=== PATIENT | female | born 1975 | race Caucasian/White ===

== ENCOUNTER 2023-05-14 04:36 | Observation (INO) | payer OTHER ==
--- NOTE | 2023-05-14 04:46 | ED ---
Overdose HPI - General Stated Complaint: Overdose, AMS Time Seen by Provider: 05/14/23 04:46 - History of Present Illness Initial Comments: Patient is a 47-year-old female came to our emergency department as a transfer from outside hospital. Apparently the patient was taken there due to altered mental status after a possibly intentional overdose. Uncertain what the patient may have taken friends provided different pill bottles which include the patrol, Xanax, Librium, Prozac and they were also told she may have taken a sleeping pill. Patient was noted to be agitated and noncooperative. Patient had blood work at outside hospital that revealed lactic acidosis, minimal transaminitis. Because patient removed her IV multiple times she did not receive any fluids she was agitated was observed for a few hours repeat labs revealed a worsening lacti c acidosis and decision was made to give her Haldol to facilitate treatment and transfer here for further evaluation of altered mental status and need for mental health evaluation. A computed tomography scan at the outside hospital that was unremarkable. - Related Data Home Medications Medication Instructions Recorded Confirmed ALPRAZolam [Xanax] 1 mg PO TID 05/14/23 05/14/23 Atorvastatin [Lipitor] 10 mg PO DAILY 05/14/23 05/14/23 Cyclobenzaprine [Flexeril] 10 mg PO TID PRN 05/14/23 05/14/23 Doxepin HCl [SINEquan] 150 mg PO HS 05/14/23 05/14/23 Insulin Glargine,Hum.rec.anlog 16 units SQ DIRECTED 05/14/23 05/14/23 [Lantus Solostar Pen] Insulin Lispro [humaLOG Kwikpen] See Protocol SQ ACHS 05/14/23 05/14/23 Levothyroxine Sodium [Synthroid] 50 mcg PO DAILY 05/14/23 05/14/23 [place] [facility] [Lithobid] 450 mg PO DAILY 05/14/23 05/14/23 Meloxicam [Mobic] 15 mg PO DAILY 05/14/23 05/14/23 hydroCHLOROthiazide [Hydrodiuril] 25 mg PO DAILY 05/14/23 05/14/23 Allergies Allergy/AdvReac Type Severity Reaction Status Date / Time No Known Allergies Allergy Verified 05/15/23 01:32 Review of Systems ROS Statement: Those systems with pertinent positive or pertinent negative responses have been documented in the HPI. ROS Other: All systems not noted in ROS Statement are negative. Past Medical History - Past Family History Father Family Medical History: Dementia, Renal Disease Additional Family Medical History / Comment(s): drug addict Mother Family Medical History: Dementia General Exam - General Exam Comments Initial Comments: Physical Exam GENERAL: Patient is somewhat obtunded, open-mouth breathing, dry mucous membranes. She does wake to loud verbal stimuli or shaking HENT: Normocephalic, Atraumatic. If his membranes dry EYES: PERRL, EOMI PULMONARY: Unlabored respirations CARDIOVASCULAR: Tachycardic, regular ABDOMEN: Non-distended SKIN: No rashes or bruising : Deferred NEUROLOGIC: Obtunded but moving extremities and fighting examination MUSCULOSKELETAL: Moving all extremities with no apparent injury PSYCHIATRIC: Unable to assess Course Vital Signs 05/14/23 05/14/23 05/14/23 04:46 05:27 09:30 Temperature 98.2 F Pulse Rate 114 H 110 H 96 Respiratory 20 22 18 Rate Blood Pressure 136/97 146/93 138/91 O2 Sat by Pulse 98 96 96 Oximetry 05/14/23 05/14/23 05/14/23 11:00 12:00 17:15 Temperature Pulse Rate 96 95 86 Respiratory 18 18 18 Rate Blood Pressure 161/97 131/84 144/96 O2 Sat by Pulse 96 96 100 Oximetry Medical Decision Making - Medical Decision Making Was pt. sent in by a medical professional or institution ([facility], ASSISTANT GOLF COACH, urgent care, hospital, or long-term...) When possible be specific @ -Yes, transfer from outside facility Did you speak to anyone other than the patient for history (EMS, parent, family, police, friend...)? What history was obtained from this source @ -EMS Did you review nursing and triage notes (agree or disagree)? Why? @ -I reviewed and agree with nursing and triage notes Were old charts reviewed (outside hosp., previous admission, EMS record, old EKG, old radiological studies, urgent care reports/EKG's, long-term records)? Report findings @ -Transfer packet reviewed Differential Diagnosis (chest pain, altered mental status, abdominal pain women, abdominal pain men, vaginal bleeding, weakness, fever, dyspnea, syncope, heada ozzy, dizziness, GI bleed, back pain, seizure, CVA, palpatations, mental health, musculoskeletal)? @ -Differential Altered Mental Status: Hypoglycemia, DKA, hypercapnia, ETOH, overdose, CO poisoning, trauma, myxedema coma, HTN encephalopathy, infection, encephalitis, psychosis, intercranial hemorrhage, hepatic encephalopathy, meningitis, CVA, this is not meant to be an all-inclusive list EKG interpreted by me (3pts min.). @ -As above X-rays interpreted by me (1pt min.). @ -None done CT interpreted by me (1pt min.). @ -None done U/S interpreted by me (1pt. min.). @ -None done What testing was considered but not performed or refused? (CT, X-rays, U/S, labs)? Why? @ -None What meds were considered but not given or refused? Why? @ -Narcan, was given an outside facility without change in condition Did you discuss the management of the patient with other professionals (professionals i.e. , PA, ASSISTANT GOLF COACH, lab, RT, psych nurse, social worker delinquency prevention, modeling instructor, teacher, division officer weapons department, family independence case manager)? Give summary @ -No Was smoking cessation discussed for >3mins.? @ -No Was critical care preformed (if so, how long)? @ -No Were there social determinants of health that impacted care today? How? (Homelessness, low income, unemployed, alcoholism, drug addiction, transportation, low edu. Level, literacy, decrease access to med. care, group home, rehab)? @ -No Was there de-escalation of care discussed even if they declined (Discuss DNR or withdrawal of care, Hospice)? DNR status @ -No What co-morbidities impacted this encounter? (DM, HTN, Smoking, COPD, CAD, Cancer, CVA, ARF, Chemo, Hep., AIDS, mental health diagnosis, sleep apnea, morbid obesity)? @ -None Was patient admitted / discharged? Hospital course, mention meds given and route, prescriptions, significant lab abnormalities, going to OR and other pertinent info. @ -Admit Undiagnosed new problem with uncertain prognosis? @ -No Drug Therapy requiring intensive monitoring for toxicity (Heparin, Nitro, Insulin, Cardizem)? @ -No Were any procedures done? @ -No Diagnosis/symptom? @ -Altered mental status, polysubstance ingestion Acute, or Chronic, or Acute on Chronic? @ -Acute Uncomplicated (without systemic symptoms) or Complicated (systemic symptoms)? @ -default Side effects of treatment? @ -No Exacerbation, Progression, or Severe Exacerbation? @ -No Poses a threat to life or bodily function? How? (Chest pain, [place], [place], pneumonia, PE, COPD, DKA, ARF, appy, cholecystitis, CVA, Diverticulitis, Homicidal, S uicidal, threat to staff... and all critical care pts) @ -No - Lab Data Result diagrams: 05/14/23 04:49 05/14/23 15:20 Lab Results 05/14/23 05/14/23 05/14/23 Range/Units 04:46 04:48 04:49 WBC 10.1 (3.8-10.6) k/uL RBC 4.05 (3.80-5.40) m/uL Hgb 12.4 (11.4-16.0) gm/dL Hct 38.2 (34.0-46.0) % MCV 94.2 (80.0-100.0) fL MCH 30.7 (25.0-35.0) pg MCHC 32.6 (31.0-37.0) g/dL RDW 13.1 (11.5-15.5) % Plt Count 265 (150-450) k/uL MPV 7.2 Neutrophils % 81 % Lymphocytes % 14 % Monocytes % 4 % Eosinophils % 0 % Basophils % 0 % Neutrophils # 8.1 H (1.3-7.7) k/uL Lymphocytes # 1.4 (1.0-4.8) k/uL Monocytes # 0.4 (0-1.0) k/uL Eosinophils # 0.0 (0-0.7) k/uL Basophils # 0.0 (0-0.2) k/uL PT (9.0-12.0) sec INR (<1.2) APTT (22.0-30.0) sec VBG pH 7.36 (7.31-7.41) VBG pCO2 35 L (37-51) mmHg VBG HCO3 20 L (24-28) mmol/L Sodium (137-145) mmol/L Potassium (3.5-5.1) mmol/L Chloride (98-107) mmol/L Carbon Dioxide (22-30) mmol/L Anion Gap mmol/L BUN (7-17) mg/dL Creatinine (0.52-1.04) mg/dL Est GFR (CKD-EPI)AfAm (>60 ml/min/1.73 sqM) Est GFR (CKD-EPI)NonAf (>60 ml/min/1.73 sqM) Glucose (74-99) mg/dL POC Glucose (mg/dL) 194 H (70-110) mg/dL POC Glu Insurance Account Specialist ID Lisandro David Lactic Ac Sepsis Rflx Plasma Lactic Acid Paco (0.7-2.0) mmol/L Calcium (8.4-10.2) mg/dL Total Bilirubin (0.2-1.3) mg/dL AST (14-36) U/L ALT (4-34) U/L Alkaline Phosphatase (38-126) U/L Creatine Kinase (30-135) U/L Total Protein (6.3-8.2) g/dL Albumin (3.5-5.0) g/dL Amylase (30-110) U/L Lipase (23-300) U/L Urine HCG, Qual (Not Detectd) Salicylates mg/dL Urine Opiates Screen (NotDetected) Ur Oxycodone Screen (NotDetected) Urine Methadone Screen (NotDetected) Ur Propoxyphene Screen (NotDetected) Acetaminophen ug/mL Ur Barbiturates Screen (NotDetected) U Tricyclic Antidepress (NotDetected) Ur Phencyclidine Scrn (NotDetected) Ur Amphetamines Screen (NotDetected) U Methamphetamines Scrn (NotDetected) U Benzodiazepines Scrn (NotDetected) Urine Cocaine Screen (NotDetected) U Marijuana (THC) Screen (NotDetected) Serum Alcohol mg/dL 05/14/23 05/14/23 05/14/23 Range/Units 04:49 04:49 04:49 WBC (3.8-10.6) k/uL RBC (3.80-5.40) m/uL Hgb (11.4-16.0) gm/dL Hct (34.0-46.0) % MCV (80.0-100.0) fL MCH (25.0-35.0) pg MCHC (31.0-37.0) g/dL RDW (11.5-15.5) % Plt Count (150-450) k/uL MPV Neutrophils % % Lymphocytes % % Monocytes % % Eosinophils % % Basophils % % Neutrophils # (1.3-7.7) k/uL Lymphocytes # (1.0-4.8) k/uL Monocytes # (0-1.0) k/uL Eosinophils # (0-0.7) k/uL Basophils # (0-0.2) k/uL PT 9.8 (9.0-12.0) sec INR 0.9 (<1.2) APTT 22.5 (22.0-30.0) sec VBG pH (7.31-7.41) VBG pCO2 (37-51) mmHg VBG HCO3 (24-28) mmol/L Sodium (137-145) mmol/L Potassium (3.5-5.1) mmol/L Chloride (98-107) mmol/L Carbon Dioxide (22-30) mmol/L Anion Gap mmol/L BUN (7-17) mg/dL Creatinine (0.52-1.04) mg/dL Est GFR (CKD-EPI)AfAm (>60 ml/min/1.73 sqM) Est GFR (CKD-EPI)NonAf (>60 ml/min/1.73 sqM) Glucose (74-99) mg/dL POC Glucose (mg/dL) (70-110) mg/dL POC Glu Insurance Account Specialist ID Lactic Ac Sepsis Rflx Plasma Lactic Acid Paco (0.7-2.0) mmol/L Calcium (8.4-10.2) mg/dL Total Bilirubin (0.2-1.3) mg/dL AST (14-36) U/L ALT (4-34) U/L Alkaline Phosphatase (38-126) U/L Creatine Kinase (30-135) U/L Total Protein (6.3-8.2) g/dL Albumin (3.5-5.0) g/dL Amylase (30-110) U/L Lipase (23-300) U/L Urine HCG, Qual Not Detected (Not Detectd) Salicylates mg/dL Urine Opiates Screen Not Detected (NotDetected) Ur Oxycodone Screen Not Detected (NotDetected) Urine Methadone Screen Not Detected (NotDetected) Ur Propoxyphene Screen Not Detected (NotDetected) Acetaminophen ug/mL Ur Barbiturates Screen Not Detected (NotDetected) U Tricyclic Antidepress Detected H (NotDetected) Ur Phencyclidine Scrn Not Detected (NotDetected) Ur Amphetamines Screen Not Detected (NotDetected) U Methamphetamines Scrn Not Detected (NotDetected) U Benzodiazepines Scrn Detected H (NotDetected) Urine Cocaine Screen Not Detected (NotDetected) U Marijuana (THC) Screen Detected H (NotDetected) Serum Alcohol mg/dL 05/14/23 05/14/23 05/14/23 Range/Units 04:49 04:49 04:49 WBC (3.8-10.6) k/uL RBC (3.80-5.40) m/uL Hgb (11.4-16.0) gm/dL Hct (34.0-46.0) % MCV (80.0-100.0) fL MCH (25.0-35.0) pg MCHC (31.0-37.0) g/dL RDW (11.5-15.5) % Plt Count (150-450) k/uL MPV Neutrophils % % Lymphocytes % % Monocytes % % Eosinophils % % Basophils % % Neutrophils # (1.3-7.7) k/uL Lymphocytes # (1.0-4.8) k/uL Monocytes # (0-1.0) k/uL Eosinophils # (0-0.7) k/uL Basophils # (0-0.2) k/uL PT (9.0-12.0) sec INR (<1.2) APTT (22.0-30.0) sec VBG pH (7.31-7.41) VBG pCO2 (37-51) mmHg VBG HCO3 (24-28) mmol/L Sodium 140 (137-145) mmol/L Potassium 4.2 (3.5-5.1) mmol/L Chloride 110 H (98-107) mmol/L Carbon Dioxide 16 L (22-30) mmol/L Anion Gap 14 mmol/L BUN 13 (7-17) mg/dL Creatinine 0.62 (0.52-1.04) mg/dL Est GFR (CKD-EPI)AfAm >90 (>60 ml/min/1.73 sqM) Est GFR (CKD-EPI)NonAf >90 (>60 ml/min/1.73 sqM) Glucose 194 H (74-99) mg/dL POC Glucose (mg/dL) (70-110) mg/dL POC Glu Insurance Account Specialist ID Lactic Ac Sepsis Rflx Plasma Lactic Acid Paco 4.5 H* (0.7-2.0) mmol/L Calcium 8.8 (8.4-10.2) mg/dL Total Bilirubin 0.4 (0.2-1.3) mg/dL AST 137 H (14-36) U/L ALT 169 H (4-34) U/L Alkaline Phosphatase 127 H (38-126) U/L Creatine Kinase 1075 H* (30-135) U/L Total Protein 6.8 (6.3-8.2) g/dL Albumin 3.9 (3.5-5.0) g/dL Amylase 32 (30-110) U/L Lipase 27 (23-300) U/L Urine HCG, Qual (Not Detectd) Salicylates <1.0 mg/dL Urine Opiates Screen (NotDetected) Ur Oxycodone Screen (NotDetected) Urine Methadone Screen (NotDetected) Ur Propoxyphene Screen (NotDetected) Acetaminophen <10.0 ug/mL Ur Barbiturates Screen (NotDetected) U Tricyclic Antidepress (NotDetected) Ur Phencyclidine Scrn (NotDetected) Ur Amphetamines Screen (NotDetected) U Methamphetamines Scrn (NotDetected) U Benzodiazepines Scrn (NotDetected) Urine Cocaine Screen (NotDetected) U Marijuana (THC) Screen (NotDetected) Serum Alcohol <10 mg/dL 05/14/23 Range/Units 05:36 WBC (3.8-10.6) k/uL RBC (3.80-5.40) m/uL Hgb (11.4-16.0) gm/dL Hct (34.0-46.0) % MCV (80.0-100.0) fL MCH (25.0-35.0) pg MCHC (31.0-37.0) g/dL RDW (11.5-15.5) % Plt Count (150-450) k/uL MPV Neutrophils % % Lymphocytes % % Monocytes % % Eosinophils % % Basophils % % Neutrophils # (1.3-7.7) k/uL Lymphocytes # (1.0-4.8) k/uL Monocytes # (0-1.0) k/uL Eosinophils # (0-0.7) k/uL Basophils # (0-0.2) k/uL PT (9.0-12.0) sec INR (<1.2) APTT (22.0-30.0) sec VBG pH (7.31-7.41) VBG pCO2 (37-51) mmHg VBG HCO3 (24-28) mmol/L Sodium (137-145) mmol/L Potassium (3.5-5.1) mmol/L Chloride (98-107) mmol/L Carbon Dioxide (22-30) mmol/L Anion Gap mmol/L BUN (7-17) mg/dL Creatinine (0.52-1.04) mg/dL Est GFR (CKD-EPI)AfAm (>60 ml/min/1.73 sqM) Est GFR (CKD-EPI)NonAf (>60 ml/min/1.73 sqM) Glucose (74-99) mg/dL POC Glucose (mg/dL) (70-110) mg/dL POC Glu Insurance Account Specialist ID Lactic Ac Sepsis Rflx Y Plasma Lactic Acid Paco (0.7-2.0) mmol/L Calcium (8.4-10.2) mg/dL Total Bilirubin (0.2-1.3) mg/dL AST (14-36) U/L ALT (4-34) U/L Alkaline Phosphatase (38-126) U/L Creatine Kinase (30-135) U/L Total Protein (6.3-8.2) g/dL Albumin (3.5-5.0) g/dL Amylase (30-110) U/L Lipase (23-300) U/L Urine HCG, Qual (Not Detectd) Salicylates mg/dL Urine Opiates Screen (NotDetected) Ur Oxycodone Screen (NotDetected) Urine Methadone Screen (NotDetected) Ur Propoxyphene Screen (NotDetected) Acetaminophen ug/mL Ur Barbiturates Screen (NotDetected) U Tricyclic Antidepress (NotDetected) Ur Phencyclidine Scrn (NotDetected) Ur Amphetamines Screen (NotDetected) U Methamphetamines Scrn (NotDetected) U Benzodiazepines Scrn (NotDetected) Urine Cocaine Screen (NotDetected) U Marijuana (THC) Screen (NotDetected) Serum Alcohol mg/dL - EKG Data -: EKG Interpreted by Me EKG shows normal: sinus rhythm Rate: tachycardia EKG Comments: KJ interpreted by me, EKG obtained as part of the toxicology workup EKG obtained at 4:43 AM rate is 111 rhythm is sinus tach normal intervals MT 128 QRS [address] QTC [address] elevations or depressions or evidence of ischemia, infarction or pathologic arrhythmia. Some motion artifact is noted. Disposition Clinical Impression: Drug overdose, Lactic acidosis, Metabolic encephalopathy Disposition: ADMITTED IP TO THIS HOSP Condition: Serious Is patient prescribed a controlled substance at d/c from ED?: No
[2023-05-14 04:47] LABS: Glucose,Whole Blood 194 mg/dL (70-110)
[2023-05-14 05:20] LABS: VBG PH 7.36 (7.31-7.41)
[2023-05-14 05:22] LABS: Basophils % (A) 0 %; Eosinophils % (A) 0 %; HCT 38.2 % (34.0-46.0); HGB 12.4 gm/dL (11.4-16.0); Lymphocytes # (A) 1.4 k/uL (1.0-4.8); Lymphocytes % (A) 14 %; MCH 30.7 pg (25.0-35.0); MCHC 32.6 g/dL (31.0-37.0); MCV 94.2 fL (80.0-100.0); Mean Platelet Volume 7.2; Monocytes # (A) 0.4 k/uL (0-1.0); Monocytes % (A) 4 %; Neutrophils # (A) 8.1 k/uL (1.3-7.7); Neutrophils % (A) 81 %; Platelet Count 265 k/uL (150-450); RBC 4.05 m/uL (3.80-5.40); RDW 13.1 % (11.5-15.5); WBC 10.1 k/uL (3.8-10.6)
[2023-05-14 05:33] LABS: ALT 169 U/L (4-34); AST 137 U/L (14-36); Acetaminophen <10.0 ug/mL; African American GFR (CKD) >90 (>60 ml/min/1.73 sqM); Albumin 3.9 g/dL (3.5-5.0); Alcohol <10 mg/dL; Alkaline Phosphatase 127 U/L (38-126); Amylase 32 U/L (30-110); Anion Gap 14 mmol/L; Blood Urea Nitrogen 13 mg/dL (7-17); Calcium 8.8 mg/dL (8.4-10.2); Carbon Dioxide 16 mmol/L (22-30); Chloride 110 mmol/L (98-107); Glucose 194 mg/dL (74-99); Lipase 27 U/L (23-300); Non-African American GFR(CKD) >90 (>60 ml/min/1.73 sqM); Potassium 4.2 mmol/L (3.5-5.1); Salicylate <1.0 mg/dL; Sodium 140 mmol/L (137-145); Total Bilirubin 0.4 mg/dL (0.2-1.3); Total Protein 6.8 g/dL (6.3-8.2)
[2023-05-14 05:52] LABS: INR 0.9 (<1.2); Partial Thromboplastin Time 22.5 sec (22.0-30.0); Prothrombin Time 9.8 sec (9.0-12.0)
[2023-05-14] MEDS ORDERED: SODIUM CHLORIDE 0.9% 2,000 ML IV ONE (06:04)
[2023-05-14 06:59] LABS: Amphetamine Screen,Urine Not Detected (NotDetected); Barbiturate Screen,Urine Not Detected (NotDetected); Benzodiazepines Screen,Urine Detected (NotDetected); Cocaine Screen,Urine Not Detected (NotDetected); Methadone Screen, Urine Not Detected (NotDetected); Opiate Screen,Urine Not Detected (NotDetected); Oxycodone Screen, Urine Not Detected (NotDetected); Phencyclidine Screen,Urine Not Detected (NotDetected); Tricyclic Antidepressant,Urine Detected (NotDetected); Urn Cannabinoid Scrn Detected (NotDetected)
[2023-05-14] MEDS: SODIUM CHLORIDE 0.9% 1,000 ML IV SCH ×3 (07:00→21:01)
[2023-05-14] MEDS ORDERED: NALOXONE 0.4 MG/ML 1 ML VIAL IV PRN ×2 (07:09→09:35)
--- NOTE | 2023-05-14 09:47 | P.HPIM ---
History of Present Illness H&P Date: 05/14/23 Chief Complaint: intentional overdose 47-year-old woman with medical history of depression presented for evaluation of intentional overdose. Patient was transferred by [facility]. She is altered and does not provide any history, history is taken from ER provider ambreen howell, nursing discussion, as well as chart review. From my understanding, patient took an unknown amount of multiple medications and became obtunded and altered prompting evaluation in the emergency room. While [facility], patient had a workup which showed mild transaminitis, but negative head CT. She was slowly transferred to our facility for further evaluation. Review of systems could not be completed due to patient's mental status. In the emergency room, patient was afebrile, 136/97, heart rate 114, 98% on room air. CBC was unremarkable. Basic metabolic panel showed chloride of 110, CO2 of 16, anion gap of 14. Liver function tests showed AST of 137, ALT 169, alkaline phosphatase 127. Lipase was 27. Creatinine kinase was 1075. Lactic acid was 4.5. Coags are unremarkable. VBG showed pH of 7.36, pCO2 of 35. Beta hCG was negative. Urine tox screen was positive for tricyclic antidepressants, benzodiazepines, marijuana. Alcohol level was less than 10, Tylenol level was less than 10, salicylate level is less than 1. EKG in our facility demonstrated sinus tachycardia with normal axis, no evidence of ischemia. CT of the head from outlying facility was reviewed and showed no intracranial pathology. Case was discussed with the emergency room provider and decision was made with the patient's hospital for further evaluation. Review of systems cannot be completed as above Gen: in no apparent distress, resting comfortably in bed Eyes: PERRL, no scleral injection or icterus HENT: normocephalic, atraumatic, good hearing acuity, moist mucous membranes Neck: no tracheal deviation, full range of motion Resp: good air exchange, breathing comfortably with no accessory muscle use, no tactile fremitus CVS: good distal perfusion x 4, no pitting edema GI: soft, NTTP, ND, no hepatosplenomegaly : no suprapubic tenderness, no CVAT, iglesias catheter not present MSK: no clubbing, no cyanosis, no noted contractures of extremities Skin: no noted rashes, petechiae; temperature of skin is appropriate Neuro: moving all extremities without signs of weakness, CN II-XII intact Labs and imaging as above Assessment/plan: Vital signs, lab work, imaging reviewed and discussed in the HPI, EKG was personally interpreted Intentional overdose Major depressive disorder -Psychiatry consulted -Monitor patient on telemetry -EKG every 8 hours to monitor QRS duration given tricyclics in the urine tox screen -Seizure precautions -monitor VBG q8h to determine need for bicarb Lactic acidosis Non-anion gap metabolic acidosis Elevated liver enzymes Elevated creatinine kinase -IVF: 130cc/hr of NS -repeat BMP at 1600, then daily -repeat LFTs daily Pt is full code Past Medical History Past Medical History: Unable to Obtain History of Any Multi-Drug Resistant Organisms: Unobtainable Past Surgical History: Unable to Obtain Past Psychological History: Unable to Obtain Smoking Status: Unknown if ever smoked Past Alcohol Use History: Unable to Obtain Past Drug Use History: Unable to Obtain Medications and Allergies Allergies Allergy/AdvReac Type Severity Reaction Status Date / Time Unable to Assess Allergy Verified 05/14/23 04:48 Physical Exam Osteopathic Statement: *. No significant issues noted on an osteopathic structural exam other than those noted in the History and Physical/Consult. Vitals: Vital Signs Temp Pulse Resp BP Pulse Ox 05/14/23 05:27 110 H 22 146/93 96 05/14/23 04:46 98.2 F 114 H 20 136/97 98 Intake and Output 05/13/23 05/14/23 05/14/23 22:59 06:59 14:59 Other: Weight 79.379 kg Results CBC & Chem 7: 05/14/23 04:49 05/14/23 04:49 Labs: Abnormal Lab Results - Last 24 Hours (Table) 05/14/23 05/14/23 05/14/23 Range/Units 04:46 04:48 04:49 Neutrophils # 8.1 H (1.3-7.7) k/uL VBG pCO2 35 L (37-51) mmHg VBG HCO3 20 L (24-28) mmol/L Chloride (98-107) mmol/L Carbon Dioxide (22-30) mmol/L Glucose (74-99) mg/dL POC Glucose (mg/dL) 194 H (70-110) mg/dL Plasma Lactic Acid Paco (0.7-2.0) mmol/L AST (14-36) U/L ALT (4-34) U/L Alkaline Phosphatase (38-126) U/L Creatine Kinase (30-135) U/L U Tricyclic Antidepress (NotDetected) U Benzodiazepines Scrn (NotDetected) U Marijuana (THC) Screen (NotDetected) 05/14/23 05/14/23 05/14/23 Range/Units 04:49 04:49 04:49 Neutrophils # (1.3-7.7) k/uL VBG pCO2 (37-51) mmHg VBG HCO3 (24-28) mmol/L Chloride 110 H (98-107) mmol/L Carbon Dioxide 16 L (22-30) mmol/L Glucose 194 H (74-99) mg/dL POC Glucose (mg/dL) (70-110) mg/dL Plasma Lactic Acid Paco 4.5 H* (0.7-2.0) mmol/L AST 137 H (14-36) U/L ALT 169 H (4-34) U/L Alkaline Phosphatase 127 H (38-126) U/L Creatine Kinase (30-135) U/L U Tricyclic Antidepress Detected H (NotDetected) U Benzodiazepines Scrn Detected H (NotDetected) U Marijuana (THC) Screen Detected H (NotDetected) 05/14/23 Range/Units 04:49 Neutrophils # (1.3-7.7) k/uL VBG pCO2 (37-51) mmHg VBG HCO3 (24-28) mmol/L Chloride (98-107) mmol/L Carbon Dioxide (22-30) mmol/L Glucose (74-99) mg/dL POC Glucose (mg/dL) (70-110) mg/dL Plasma Lactic Acid Paco (0.7-2.0) mmol/L AST (14-36) U/L ALT (4-34) U/L Alkaline Phosphatase (38-126) U/L Creatine Kinase 1075 H* (30-135) U/L U Tricyclic Antidepress (NotDetected) U Benzodiazepines Scrn (NotDetected) U Marijuana (THC) Screen (NotDetected)
[2023-05-14 11:50] LABS: VBG PH 7.32 (7.31-7.41)
[2023-05-14 15:55] LABS: African American GFR (CKD) >90 (>60 ml/min/1.73 sqM); Anion Gap 11 mmol/L; Blood Urea Nitrogen 9 mg/dL (7-17); Carbon Dioxide 19 mmol/L (22-30); Chloride 111 mmol/L (98-107); Glucose 151 mg/dL (74-99); Non-African American GFR(CKD) >90 (>60 ml/min/1.73 sqM); Sodium 141 mmol/L (137-145)
[2023-05-14 15:56] LABS: Potassium 4.4 mmol/L (3.5-5.1)
[2023-05-14 17:28] LABS: VBG PH 7.37 (7.31-7.41)
[2023-05-14] MEDS ORDERED: DEXTROSE 50% SYRINGE 50 ML IVP PRN ×2 (20:51)
--- NOTE | 2023-05-14 21:03 | P.EN ---
I was asked to evaluate the patient , as she wanted to leave AMA. patient is currently awake, Alert oriented to place , person and time. she was calm and collected. I explained my role, and that my priority is to make sure she is safe and not a threat to herself or others. patient explained to me that she is not sure why she is kept at the hospital against her will, and that she feels fine and wants to go home. I explained that documentation from prior hospital at [facility] and prior doctors who evaluated her at our facility mentioned that there was a suspicion of Intentional drug overdose, and that she was altered during that time. she explained that a month ago she and her daughter moved to a new area near [facility], and currently looking for jobs. the patient takes xanax, [place] and another medication for her anxiety and bipolar disorder, but she denies any suicidal or homicidal ideation. her goal is to find a job and able to move to a nicer place. however, her daughter, who is not currently seeing doctors, has been asking to use her medications, which the patient refuses to share any as she has to make sure her medications will last her the whole month. the patient believes that her daughter called the police on her to get rid of her so she can use her medications because they got into an argument earlier and refused to share any with her. patient believes that she was not looking good earlier when the police arrived, because she has just taken her medications and was getting sleepy but she denies that she would ever abuse or overdose on her medications. again she denies any suicidal ideation. upon arrival to our facility, she was very upset and refused to talk to anyone. and not until she started crying and threatening to leave AMA when they finally called the doctor (the mortgage loan underwriter). patient seems to be calm, cooperative. she agreed to stay tonight as it was getting late and would be hard for her to go home, and her daughter does not drive. I aslo explained that she had some abnormal blood work with elevated LA, liver enzymes and CPK. she agreed to receive the appropriate treatment tonight , she was asking for her meds, food and night time insulin. and she is hoping that her blood work would look better in the morning so she would be able to go back home. she indicated that she would be worried about her daughter being alone, because she does not trust her making the right decisions. discontinue suicidal precautions and radiation safety officer. home meds were reconciled RN, and nurse hotel operations manager were notified with the above I spent 35 minutes at bedside speaking and evaluating the patient
[2023-05-14] MEDS: ALPRAZolam 1 MG TAB PO SCH (21:38)
[2023-05-14] MEDS: DOXEPIN 25 MG CAP PO SCH (21:38)
[2023-05-14 21:53] LABS: Glucose,Whole Blood 189 mg/dL (70-110)
[2023-05-14] MEDS: HYDROcodone/APAP 5-325MG 1 EACH TAB PO PRN (21:56)
[2023-05-14] MEDS: INSULIN ASPART (NovoLOG) 100 UNIT/ML VIAL SQ SCH (22:10)
[2023-05-15 02:58] LABS: VBG PH 7.39 (7.31-7.41)
[2023-05-15] MEDS: SODIUM CHLORIDE 0.9% 1,000 ML IV SCH ×3 (05:55→17:02)
[2023-05-15] MEDS: LEVOTHYROXINE 50 MCG TAB PO SCH (05:55)
[2023-05-15 06:14] LABS: VBG PH 7.39 (7.31-7.41)
[2023-05-15] MEDS: HYDROcodone/APAP 5-325MG 1 EACH TAB PO PRN ×4 (06:19→21:09)
[2023-05-15 07:34] LABS: Glucose,Whole Blood 142 mg/dL (70-110)
[2023-05-15] MEDS: INSULIN ASPART (NovoLOG) 100 UNIT/ML VIAL SQ SCH ×4 (07:38→21:10)
[2023-05-15 08:43] LABS: Basophils # (A) 0.03 X 10*3/uL (0.00-0.10); Basophils % (A) 0.6 %; Eosinophils # (A) 0.08 X 10*3/uL (0.04-0.35); Eosinophils % (A) 1.5 %; HCT 34.7 % (37.2-46.3); HGB 11.1 d/dL (12.0-15.0); Lymphocytes % (A) 30.5 %; MCH 30.2 pg (27.0-32.0); MCV 94.3 FL (80.0-97.0); Mean Platelet Volume 8.9 FL (9.5-12.2); Monocytes # (A) 0.31 X 10*3/uL (0.20-1.00); Monocytes % (A) 5.9 %; NRBC Per 100 WBC 0 X 10*3/uL (0.00-0.01); Neutrophils % (A) 60.9 %; Platelet Count 213 X 10*3/uL (140-440); RBC 3.68 X 10*6/uL (4.10-5.20); RDW 13.2 % (11.5-14.5); WBC 5.25 X 10*3/uL (4.50-10.00)
[2023-05-15] MEDS: LITHIUM CARBONATE ER 450 MG TABLET.ER PO SCH (08:53)
[2023-05-15] MEDS: ALPRAZolam 1 MG TAB PO SCH ×3 (08:53→21:09)
[2023-05-15 08:56] LABS: ALT 108 U/L (8-44); AST 53 U/L (13-35); Albumin 3.3 d/dL (3.8-4.9); Albumin/Globulin Ratio 1.57 Ratio (1.60-3.17); Alkaline Phosphatase 111 U/L (41-126); BUN/Creat Ratio 12.43 Ratio (12.00-20.00); Bilirubin, Conjugated <0.20 mg/dL (0.20-0.40); Bilirubin,Unconjugated >0 mg/dL (0.20-1.00); Blood Urea Nitrogen 8.7 mg/dL (9.0-27.0); Calcium 8.1 mg/dL (8.7-10.3); Carbon Dioxide 19.9 mmol/L (21.6-31.8); Chloride 110 mmol/L (96-109); Creatine Kinase 378 U/L (26-186); Globulin 2.1 d/dL (1.6-3.3); Glucose 140 mg/dL (70-110); Magnesium 1.8 mg/dL (1.5-2.4); Potassium 3.6 mmol/L (3.5-5.5); Sodium 141 mmol/L (135-145); Total Bilirubin 0.2 mg/dL (0.3-1.2); Total Protein 5.4 d/dL (6.2-8.2)
[2023-05-15 13:01] LABS: Glucose,Whole Blood 158 mg/dL (70-110)
[2023-05-15] MEDS ORDERED: diazePAM 2 MG TAB PO STA (14:20)
--- NOTE | 2023-05-15 14:33 | P.CN ---
Psychiatric Consult - . Consult date: 05/15/23 Consult:: 05/15/23 13:11 IDENTIFYING DATA: This patient is a [] 47-year-old female, currently homeless over staying at a friend's house, she has 2 kids, currently lives with his daughter as well. She is unemployed REASON FOR REFERRAL: Psychiatry was consulted for possible overdose HISTORY OF PRESENT ILLNESS: The patient presented to the hospital as a transfer from [facility]. Patient apparently is having altered mental status, the concern was that patient possibly overdosed on medications however unsure which medications. [place] level was below 0.2. Patient was agreeable to seek to copywriter today. She was calm and cooperative during the interview. She claims that she has been living with her daughter and has been fairly stressful. She states that she was having a dizzy spell at home where she is staying and claims that she fell over a couple of times. States that she adamantly did not overdose on any medications. She claims that she takes her medications regularly. She states that her daughter is the one that needs mental health treatment and has been suicidal. She states that her daughter may be taking some of her medications. She is denying any depression this time, states her anxiety is mildly elevated due to wanting to go home. She was fairly rational and reasonable with copywriter, she was claiming that she wants to live for her kids and also her future and to find work. States her sleep and appetite are fair at this time.. At this time patient denies any suicidal or homical ideations, intent or plan. Patient denies any auditory, visual hallucinations and denies any paranoia or delusions. Patients admits to using marijuana occasionally, cigarettes/day cocaine products regularly. PAST PSYCHIATRIC HISTORY: Patient has a a history of bipolar disorder, PTSD. she claims that she was previously on lithium, Xanax and also doxepin which has been helping her.[Patient denies any previous psychiatric hospitalizations.] [Patient claims that she follows up at [facility] with a mid level practitioner for her medications which is in [facility].] [Patient denies any history of suicide attempts in the past.] PAST MEDICAL HISTORY: as per medicine H and P ALLERGIES: as per EMR. CHEMICAL DEPENDENCY HISTORY: as per HPI. FAMILY PSYCHIATRIC/SUBSTANCE USE HISTORY: she claims that her daughter has depression and suicidal SOCIAL HISTORY: Patient was born and raised in [place], [place]. she claims that miguel ángel pendleton completed up to the 11th grade in school. 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 She has 2 kids, currently lives with her daughter in a friend's house. MENTAL STATUS EXAM: General Appearance: Patient appears to be have several tattoos, stated age is alert, pleasant, and attempts to be cooperative. Patient appears to have [fair] hygiene and grooming wearing hospital gown with [fair] eye contact. Behavior: [Patient is calmly lying in bed without any agitated behavior.] anxious about going home. Speech: Patient's speech is fluent and nonpressured. Mood/Affect: Patient reports their mood is "[fine]", affect is congruent Suicidality/Homicidality: Patient denies having any suicidal or homicidal ideation intent or plan. Perceptions: Patient denies any visual hallucinations [and denies any auditory hallucinations] Though content/process: There is no evidence of any delusional thought content and thought process is linear and goal-directed. Memory and concentration: AOX3, grossly intact for the purposes of this session. Can spell "WORLD" backwards Judgment and insight: fair IMPRESSIONS: Delirium, unknown cause History of Bipolar disorder history of PTSD Cannabis use disorder mild abuse Nicotine dependence PLAN: -At this time patient DOES [NOT] currently meet criteria for inpatient psychiatric admission due to the fact that patient is not presenting with any acute SI, HI or psychotic behavior/hallucinations. Patient is adamantly denying Overdosing on her meds and her lithium level was very lowe suggesting it wasnt at least a [place] overdose. Professor Of Religion spoke with NUrse, Hospitalist and daughter for further information/details. There is currently no petition in the chart or cert. I spoke with patients daughter Makayla over the phone at [phone] who states that patient did over dose as a suicide attempt however did not fill out a petition. Daughter claims that she is struggling with her own mental health issues and wanted to get evaluated herself. Recommendation would be allow daughter time to come into the hospital to fill out a petition. -Would recommend the following medication changes/additions: can continue with current meds. -piece dye worker to provide patient with outpatient mental health/psychiatry resources for appropriate follow up upon discharge -Professor Of Religion spoke with patient about substance abuse and the harmful effects on medical and mental health, patient verbally understood and agreed. -piece dye worker to provide patient substance use treatment resources including AA/NA meetings in the community. -Communicated plan to patient's nurse, hospitalist Dr Ross and pts daughter. -Will continue to follow along if needed -Please contact with any questions. 05/15/23 14:21
--- NOTE | 2023-05-15 16:38 | P.PN ---
Subjective Progress Note Date: 05/15/23 Pt was cooperative and understanding today, did not endorse SI/HI. Seen by psychiatry who agreed that patient did not meet inpt criteria based on their interview alone, however, given the fact that the daughter of patient is adamant that patient intentionally overdosed on her medications, daughter explained over the phone to psychiatry that she would come to the hospital to fill out petition. Pt was advised that daughter was on the way to the hospital and was agreeable to wait for her arrival, however, did report significant anxiety regarding her home situation and hospitalization thus far - requested medication to address this. Pt does have capacity to leave AMA at this time, but for medical purposes would need to stay overnight to ensure ongoing improvement of her LFTs. From medical perspective she will likely be ready for discharge tomorrow AM provided no surprise with her LFT labs. Gen: in no apparent distress, resting comfortably in bed Eyes: PERRL, no scleral injection or icterus HENT: normocephalic, atraumatic, good hearing acuity, moist mucous membranes Neck: no tracheal deviation, full range of motion Resp: good air exchange, breathing comfortably with no accessory muscle use, no tactile fremitus CVS: good distal perfusion x 4, no pitting edema GI: soft, NTTP, ND, no hepatosplenomegaly : no suprapubic tenderness, no CVAT, iglesias catheter not present MSK: no clubbing, no cyanosis, no noted contractures of extremities Skin: no noted rashes, petechiae; temperature of skin is appropriate Neuro: moving all extremities without signs of weakness, CN II-XII intact Hospital Course: 47-year-old woman with medical history of depression presented for evaluation of intentional overdose. In the emergency room, patient was afebrile, 136/97, heart rate 114, 98% on room air. CBC was unremarkable. Basic metabolic panel showed chloride of 110, CO2 of 16, anion gap of 14. Liver function tests showed AST of 137, ALT 169, alkaline phosphatase 127. Lipase was 27. Creatinine kinase was 1075. Lactic acid was 4.5. Coags are unremarkable. VBG showed pH of 7.36, pCO2 of 35. Beta hCG was negative. Urine tox screen was positive for tricyclic antidepressants, benzodiazepines, marijuana. Alcohol level was less than 10, Tylenol level was less than 10, salicylate level is less than 1. EKG in our facility demonstrated sinus tachycardia with normal axis, no evidence of ischemia. CT of the head from outlying facility was reviewed and showed no intracranial pathology. Case was discussed with the emergency room provider and decision was made with the patient's hospital for further evaluation. Assessment/plan: Intentional overdose Major depressive disorder -Psychiatry consulted, appreciate recs -provide 2mg IV valium today for anxiety Lactic acidosis Non-anion gap metabolic acidosis Elevated liver enzymes Elevated creatinine kinase -IVF: 130cc/hr of NS -repeat BMP at 1600, then daily -repeat LFTs daily Pt is full code Objective - Vital Signs Vital signs: Vital Signs Temp 98.1 F 05/15/23 13:40 Pulse 95 05/15/23 13:40 Resp 17 05/15/23 13:40 BP 133/85 05/15/23 13:40 Pulse Ox 97 05/15/23 13:40 FiO2 Intake & Output 05/14/23 05/15/23 05/15/23 18:59 06:59 18:59 Intake Total 222 Balance 222 Weight 79.379 kg Intake: Oral 222 Other: Voiding Method Toilet # Voids 1 1 - Labs CBC & Chem 7: 05/15/23 05:55 05/15/23 05:55 Labs: Abnormal Lab Results - Last 24 Hours (Table) 05/14/23 05/14/23 05/15/23 Range/Units 17:10 21:50 05:55 RBC (4.10-5.20) X 10*6/uL Hgb (12.0-15.0) d/dL Hct (37.2-46.3) % MPV (9.5-12.2) FL VBG pCO2 35 L (37-51) mmHg VBG HCO3 22 L 21 L (24-28) mmol/L Chloride (96-109) mmol/L Carbon Dioxide (21.6-31.8) mmol/L BUN (9.0-27.0) mg/dL Glucose (70-110) mg/dL POC Glucose (mg/dL) 189 H (70-110) mg/dL Hemoglobin A1c (<=6.0) % Calcium (8.7-10.3) mg/dL Total Bilirubin (0.3-1.2) mg/dL Unconjugated Bilirubin (0.20-1.00) mg/dL AST (13-35) U/L ALT (8-44) U/L Creatine Kinase (26-186) U/L Total Protein (6.2-8.2) d/dL Albumin (3.8-4.9) d/dL Albumin/Globulin Ratio (1.60-3.17) Ratio 05/15/23 05/15/23 05/15/23 Range/Units 05:55 05:55 05:55 RBC 3.68 L (4.10-5.20) X 10*6/uL Hgb 11.1 L (12.0-15.0) d/dL Hct 34.7 L (37.2-46.3) % MPV 8.9 L (9.5-12.2) FL VBG pCO2 (37-51) mmHg VBG HCO3 (24-28) mmol/L Chloride 110 H (96-109) mmol/L Carbon Dioxide 19.9 L (21.6-31.8) mmol/L BUN 8.7 L (9.0-27.0) mg/dL Glucose 140 H (70-110) mg/dL POC Glucose (mg/dL) (70-110) mg/dL Hemoglobin A1c 7.9 H (<=6.0) % Calcium 8.1 L (8.7-10.3) mg/dL Total Bilirubin 0.2 L (0.3-1.2) mg/dL Unconjugated Bilirubin >0 L (0.20-1.00) mg/dL AST 53 H (13-35) U/L ALT 108 H (8-44) U/L Creatine Kinase 378 H (26-186) U/L Total Protein 5.4 L (6.2-8.2) d/dL Albumin 3.3 L (3.8-4.9) d/dL Albumin/Globulin Ratio 1.57 L (1.60-3.17) Ratio 05/15/23 05/15/23 Range/Units 07:09 12:58 RBC (4.10-5.20) X 10*6/uL Hgb (12.0-15.0) d/dL Hct (37.2-46.3) % MPV (9.5-12.2) FL VBG pCO2 (37-51) mmHg VBG HCO3 (24-28) mmol/L Chloride (96-109) mmol/L Carbon Dioxide (21.6-31.8) mmol/L BUN (9.0-27.0) mg/dL Glucose (70-110) mg/dL POC Glucose (mg/dL) 142 H 158 H (70-110) mg/dL Hemoglobin A1c (<=6.0) % Calcium (8.7-10.3) mg/dL Total Bilirubin (0.3-1.2) mg/dL Unconjugated Bilirubin (0.20-1.00) mg/dL AST (13-35) U/L ALT (8-44) U/L Creatine Kinase (26-186) U/L Total Protein (6.2-8.2) d/dL Albumin (3.8-4.9) d/dL Albumin/Globulin Ratio (1.60-3.17) Ratio
[2023-05-15 17:30] LABS: Glucose,Whole Blood 138 mg/dL (70-110)
[2023-05-15 20:50] LABS: Glucose,Whole Blood 214 mg/dL (70-110)
[2023-05-15] MEDS: DOXEPIN 25 MG CAP PO SCH (21:10)
[2023-05-16] MEDS: HYDROcodone/APAP 5-325MG 1 EACH TAB PO PRN ×2 (01:28→09:05)
[2023-05-16] MEDS: SODIUM CHLORIDE 0.9% 1,000 ML IV SCH ×2 (01:29→07:28)
[2023-05-16] MEDS: LEVOTHYROXINE 50 MCG TAB PO SCH (06:02)
[2023-05-16 07:09] LABS: ALT 128 U/L (4-34); AST 94 U/L (14-36); African American GFR (CKD) >90 (>60 ml/min/1.73 sqM); Albumin 3.7 g/dL (3.5-5.0); Albumin/Globulin Ratio 1.2; Alkaline Phosphatase 110 U/L (38-126); Anion Gap 8 mmol/L; Bilirubin,Unconjugated 0.3 mg/dL (0.0-1.1); Blood Urea Nitrogen 13 mg/dL (7-17); Carbon Dioxide 22 mmol/L (22-30); Chloride 107 mmol/L (98-107); Glucose 166 mg/dL (74-99); Non-African American GFR(CKD) >90 (>60 ml/min/1.73 sqM); Potassium 4.6 mmol/L (3.5-5.1); Sodium 137 mmol/L (137-145); Total Bilirubin 0.6 mg/dL (0.2-1.3); Total Protein 6.7 g/dL (6.3-8.2)
[2023-05-16 07:27] LABS: Glucose,Whole Blood 184 mg/dL (70-110)
[2023-05-16 08:03] VITALS: BP 130/88; PULSE 93; RESP 17; TEMP 97.6
[2023-05-16] MEDS: LITHIUM CARBONATE ER 450 MG TABLET.ER PO SCH (09:07)
[2023-05-16] MEDS: ALPRAZolam 1 MG TAB PO SCH (09:07)
[2023-05-16] MEDS: INSULIN ASPART (NovoLOG) 100 UNIT/ML VIAL SQ SCH (09:07)
--- NOTE | 2023-05-16 13:41 | P.DS ---
Providers Date of admission: 05/14/23 07:10 Expected date of discharge: 05/16/23 Attending physician: Emma Rajan DO Consults: 05/14/23 09:36 Consult Physician Routine Consulting Provider: Eusebio Cheng Consult Reason/Comments: suicidal attempt via overdose Do you want consulting provider notified?: Yes Primary care physician: Stated None Hospital Course: Intentional overdose Major depressive disorder Lactic acidosis Non-anion gap metabolic acidosis Elevated liver enzymes Elevated creatinine kinase Hospital Course: 47-year-old woman with medical history of depression presented for evaluation of intentional overdose. In the emergency room, patient was afebrile, 136/97, heart rate 114, 98% on room air. CBC was unremarkable. Basic metabolic panel showed chloride of 110, CO2 of 16, anion gap of 14. Liver function tests showed AST of 137, ALT 169, alkaline phosphatase 127. Lipase was 27. Creatinine kinase was 1075. Lactic acid was 4.5. Coags are unremarkable. VBG showed pH of 7.36, pCO2 of 35. Beta hCG was negative. Urine tox screen was positive for tricyclic antidepressants, benzodiazepines, marijuana. Alcohol level was less than 10, Tylenol level was less than 10, salicylate level is less than 1. EKG in our facility demonstrated sinus tachycardia with normal axis, no evidence of ischemia. CT of the head from outlying facility was reviewed and showed no intracranial pathology. Case was discussed with the emergency room provider and decision was made with the patient's hospital for further evaluation. Pt was cooperative and understanding, did not endorse SI/HI on re-evaluation. Seen by psychiatry who agreed that patient did not meet inpt criteria based on their interview alone, however, given the fact that the daughter of patient was adamant that patient intentionally overdosed on her medications, daughter explained over the phone to psychiatry that she would come to the hospital to fill out petition. Pt was advised that daughter was on the way to the hospital and was agreeable to wait for her arrival, however, did report significant anxiety regarding her home situation and hospitalization thus far - requested medication to address this and was given a one time does of valium. Patient's daughter did arrive to the floor, but was noted to be inebriated on drugs by care staff, and then proceeded to make comments about her own mental health and that she was suicidal, therefore was referred to the emergency room and no petition was signed. Patient was subsequently discharged after LFTs remained stable. She is provided resources with mental health services upon discharge. I spent 40 minutes dealing with this discharge, on 05/16 Gen: in no apparent distress, resting comfortably in bed Eyes: PERRL, no scleral injection or icterus HENT: normocephalic, atraumatic, good hearing acuity, moist mucous membranes Neck: no tracheal deviation, full range of motion Resp: good air exchange, breathing comfortably with no accessory muscle use, no tactile fremitus CVS: good distal perfusion x 4, no pitting edema GI: soft, NTTP, ND, no hepatosplenomegaly : no suprapubic tenderness, no CVAT, iglesias catheter not present MSK: no clubbing, no cyanosis, no noted contractures of extremities Skin: no noted rashes, petechiae; temperature of skin is appropriate Neuro: moving all extremities without signs of weakness, CN II-XII intact Patient Condition at Discharge: Good Plan - Discharge Summary Discharge Rx Participant: Yes New Discharge Prescriptions: Continue hydroCHLOROthiazide [Hydrodiuril] 25 mg PO DAILY Levothyroxine Sodium [Synthroid] 50 mcg PO DAILY [place] Carbonate ER [Lithobid] 450 mg PO DAILY Insulin Lispro [humaLOG Kwikpen] See Protocol SQ ACHS Insulin Glargine,Hum.rec.anlog [Lantus Solostar Pen] 16 units SQ DIRECTED Doxepin HCl [SINEquan] 150 mg PO HS Atorvastatin [Lipitor] 10 mg PO DAILY ALPRAZolam [Xanax] 1 mg PO TID Discontinued Cyclobenzaprine [Flexeril] 10 mg PO TID PRN PRN Reason: Muscle Spasm Meloxicam [Mobic] 15 mg PO DAILY Discharge Medication List ALPRAZolam [Xanax] 1 mg PO TID 05/14/23 [History] Atorvastatin [Lipitor] 10 mg PO DAILY 05/14/23 [History] Doxepin HCl [SINEquan] 150 mg PO HS 05/14/23 [History] Insulin Glargine,Hum.rec.anlog [Lantus Solostar Pen] 16 units SQ DIRECTED 05/14/23 [History] Insulin Lispro [humaLOG Kwikpen] See Protocol SQ ACHS 05/14/23 [History] Levothyroxine Sodium [Synthroid] 50 mcg PO DAILY 05/14/23 [History] [place] Carbonate ER [Lithobid] 450 mg PO DAILY 05/14/23 [History] hydroCHLOROthiazide [Hydrodiuril] 25 mg PO DAILY 05/14/23 [History] Follow up Appointment(s)/Referral(s): None,Stated [Primary Care Provider] - 1-2 days Patient Instructions/Handouts: Prescription Opioid Overdose (DC) Activity/Diet/Wound Care/Special Instructions: Diet as tolerated Activity limited until seen by Discharge/Stand Alone Forms: [facility], [facility], Who Do I Call?, Community Resources, Outpatient Counseling Discharge Disposition: HOME SELF-CARE
== END 2023-05-16 11:55 | disposition home or self-care (01) ==
LOC: EC 04:36 → 5NMEDONC 07:10
PROVIDERS: ADMIT Internal Medicine; ATTEND Internal Medicine
DX: T50.902A Poisoning by unspecified drugs, medicaments and biological substances, intentional self-harm, initial encounter (principal); F31.9 Bipolar disorder, unspecified; G93.41 Metabolic encephalopathy; F43.10 Post-traumatic stress disorder, unspecified; R79.89 Other specified abnormal findings of blood chemistry; R74.8 Abnormal levels of other serum enzymes; E87.20 Acidosis, unspecified; F12.10 Cannabis abuse, uncomplicated; F41.9 Anxiety disorder, unspecified; F17.200 Nicotine dependence, unspecified, uncomplicated; Z59.00 Homelessness unspecified; Z56.0 Unemployment, unspecified; Z79.899 Other long term (current) drug therapy; Z79.890 Hormone replacement therapy; Z79.1 Long term (current) use of non-steroidal anti-inflammatories (NSAID); Z79.4 Long term (current) use of insulin
CPT/HCPCS: 96361 ×3; 96372 ×3; 96360; 99285; 36415; 93005; 80053; 80048 ×3; 80076 ×2; 82150; 82550 ×2; 82803 ×2; 83605 ×2; 83690; 80178; 83735; 85025 ×2; 85610; 85730; 81025; 80306; 80143; 83036; 80179; G0378 ×3; G0480; 80320